=== PATIENT | male | born 1980 | race Caucasian/White ===

== ENCOUNTER 2018-01-30 18:08 | Emergency (ER) | payer SELFPAY, OTHER ==
[2018-01-30] MEDS: BENOXINATE HCL/FLUORESCEIN SOD 5 ML OPHTH RIGHT EYE (20:47)
[2018-01-30 20:49] LABS: ADD UMIC YES; UR ASCORBIC ACID 20 mg/dL (NEGATIVE); UR BILIRUBIN (Dip) NEGATIVE (NEGATIVE); UR BLOOD (Dip) NEGATIVE (NEGATIVE); UR CLARITY CLEAR (CLEAR); UR COLOR STRAW (YELLOW); UR GLUCOSE (Dip) NEGATIVE (NEGATIVE); UR KETONES (Dip) NEGATIVE (NEGATIVE); UR LEUKOCYTE ESTERASE (Dip) 1+ Leu/ul (NEGATIVE); UR NITRITE (Dip) NEGATIVE (NEGATIVE); UR RBC 1 /HPF (0-5); UR SPECIFIC GRAVITY (Dip) 1.008 (1.003-1.030); UR TOTAL PROTEIN (Dip) NEGATIVE (NEGATIVE); UR UROBILINOGEN (Dip) NEGATIVE (NEGATIVE); UR WBC 3 /HPF (0-5)
[2018-01-30] MEDS: CEFTRIAXONE 1 GM INJ IM (21:57)
[2018-01-30] MEDS: LIDOCAINE 1% (MDV) 10 ML INJ INFIL (21:57)
[2018-01-30 22:45] LABS: RAPID PLASMA REAGIN NONREACTIVE (NR)
== END 2018-01-30 23:30 | disposition home or self-care (01) ==
LOC: FTE 18:08
DX: N48.89 Other specified disorders of penis (principal); H57.8 Other specified disorders of eye and adnexa
CPT/HCPCS: 36415; 81001; 86592; 87086; 87591; 96372; 99284-25